=== PATIENT | male | born 1960 | race African-American/Black ===

== ENCOUNTER → 2016-12-01 | Outpatient (CLI) | payer OTHER ==
[~2016-12-01] MED LIST: ASPI-482 PO; CETI10TA22 PO; HYDR-2672 PO; HYDR12.58 PO; LISI-334 PO; METO-269 PO
--- NOTE | 2016-12-01 16:14 | KCIC ---
Examination: Two views of chest. HISTORY History of solitary pulmonary nodule, chronic cough. COMPARISON None available. Findings : The cardiomediastinal silhouette grossly appears unremarkable. There is a 1.6 centimeter nodule or granuloma identified in the right lower lobe of the lung. There is no acute infiltrate visualized pneumothorax identified. Mild degenerative changes thoracic spine. IMPRESSION 1.6 centimeter nodule or granuloma identified in the right lower lobe of the lung. Followup CT chest can be considered. Electronically signed by: Mark Baptiste (Dec 01, 2016 16:12:28)
== END | disposition home or self-care (01) ==
LOC: KCIC 14:20
PROVIDERS: ATTEND Family Medicine
DX: R05 Cough (principal); G47.33 Obstructive sleep apnea (adult) (pediatric); F17.200 Nicotine dependence, unspecified, uncomplicated; Z87.898 Personal history of other specified conditions
CPT/HCPCS: 71020

== ENCOUNTER → 2017-04-05 | Outpatient (CLI) | payer OTHER ==
--- NOTE | 2017-04-05 15:30 | KCIC ---
Examination: CT of the abdomen and pelvis without contrast HISTORY: Microscopic hematuria COMPARISON: None available Technique: Axial CT images of the abdomen and pelvis are performed without contrast. Coronal and sagittal reformats were performed. Exposure: One or more of the following individualized dose reduction techniques were utilized for this examination: 1. Automated exposure control 2. Adjustment of the mA and/or kV according to patient size 3. Use of iterative reconstruction technique FINDINGS: Calcified granuloma identified in the right lung base. No evidence of free air identified in the abdomen. The evaluation of the solid organs is limited due to lack of IV contrast. The evaluation of bowel is limited due to lack of oral contrast. The visualized noncontrasted liver, pancreas grossly appears unremarkable. Few calcified granulomas identified in the spleen. The right adrenal gland grossly appears unremarkable. There is mild enlarged appearing left adrenal gland measuring 6.4 mm likely left adrenal gland lipid rich adenoma. The visualized pancreas grossly appears unremarkable. The stomach is mildly distended small bowel is nondilated. The appendix grossly appears unremarkable. Feces and gas noted in the colon. Multiple sigmoid colon diverticulosis is identified. There is [id number] focal thickened appearance of the wall of the distal sigmoid colon. Normal-appearing appendix. Urinary bladder is mildly distended. Mildly enlarged appearing prostate gland. No evidence of intrarenal collecting system calculi or hydronephrosis identified. The caliber of the aorta grossly appears unremarkable. No evidence of lytic or destructive lesion. IMPRESSION: 1. No evidence of intrarenal collecting system calculi or hydronephrosis identified. 2. There is focal mild to moderate thickened appearance of the distal sigmoid colon wall with minimal surrounding fat stranding could be secondary to focal colitis or neoplasm. 3. Few colonic diverticula. 4. Left adrenal lipid rich adenoma. Electronically signed by: Mark Baptiste MD (04/05/2017 3:27 PM)
== END | disposition home or self-care (01) ==
LOC: KCIC CT 11:55
PROVIDERS: ATTEND Urology
DX: R31.29 Other microscopic hematuria (principal); K57.30 Diverticulosis of large intestine without perforation or abscess without bleeding; D35.02 Benign neoplasm of left adrenal gland
CPT/HCPCS: 74176

== ENCOUNTER → 2017-04-26 | Outpatient (CLI) | payer OTHER ==
[~2017-04-26] MED LIST changes: -HYDR-2672 PO; +HYDR-2766 PO
[2017-04-26 14:21] LABS: CALCIUM 8.9 mg/dL (8.5-10.1); CREATININE 0.9 mg/dL (0.7-1.3)
== END | disposition home or self-care (01) ==
LOC: LAB 13:21
PROVIDERS: ATTEND Urology
DX: R31.29 Other microscopic hematuria (principal)
CPT/HCPCS: 36415; 80048

== ENCOUNTER → 2017-08-27 | Day surgery (SDC) | payer OTHER ==
[~2017-08-27] MED LIST changes: +IV RINGERS,LACTATED 1000ML 1,000 ML IV SCH; +LIDOCAINE 1% PF 2 ML VIAL. ID PRN; +LIDOCAINE 2% PF Vial for OR 5 ML VIAL. ONE; +MIDAZOLAM HCL/PF 2 MG/2 ML VIAL. IV PRN; +PROPOFOL 40 ML IV ONE; +fentaNYL PF VIAL 100 MCG/2 ML VIAL IV PRN
[2017-08-27 08:55] VITALS: BP 135/97
--- NOTE | 2017-08-27 08:59 | CONS ---
DATE OF CONSULTATION: 08/27/2017 DATE OF SERVICE: 08/27/2017 REFERRING PHYSICIAN: Dr. Jac Arredondo. HISTORY OF PRESENT ILLNESS: A 56-year-old -[place] male whose past medical history significant for hypertension, hyperlipidemia, is seen for interval colonoscopy with screening colon. Bowel habits are regular with occasional constipation, left lower quadrant abdominal pain. CT scan did reveal a thickened sigmoid colon consistent with diverticular disease. Weight and appetite are stable. No melena or hematochezia noted. There is a family history of colon cancer with brother and father. He is here today for surveillance exam. PAST MEDICAL HISTORY: Hyperlipidemia, hypertension. ALLERGIES: SULFA. FAMILY HISTORY: Significant for colon cancer with a brother and father. PAST SURGICAL HISTORY: None. REVIEW OF SYSTEMS: Per records. SOCIAL HISTORY: He is a drinker or smoker. PHYSICAL EXAMINATION GENERAL: Reveals a well-nourished, well-developed male. VITAL SIGNS: Temperature is 97.7, pulse 66, respirations 20. HEENT: Normocephalic and atraumatic head. Pupils and extraocular muscles are not tested. Sclerae anicteric. NECK: Supple. LUNGS: Clear. CARDIOVASCULAR: Reveals S1, S2 without S3, S4 or appreciable murmur. ABDOMEN: Soft abdomen, normal bowel sounds, without appreciable hepatosplenomegaly. EXTREMITIES: Reveals no cyanosis, clubbing or edema. IMPRESSION: Colorectal screening with family history of colon cancer is warranted at this time. Risks and benefits of procedure including risk of perforation were discussed. The patient is willing to proceed. ROXANNE ELI MD DR: LORRIE/doug JOB#: [id number] / [id number]
== END | disposition home or self-care (01) ==
LOC: ENDOS 07:07
PROVIDERS: ATTEND Internal Medicine Gastroenterology
DX: K64.0 First degree hemorrhoids (principal); K57.30 Diverticulosis of large intestine without perforation or abscess without bleeding; E78.00 Pure hypercholesterolemia, unspecified; I10 Essential (primary) hypertension; Z80.0 Family history of malignant neoplasm of digestive organs; Z86.69 Personal history of other diseases of the nervous system and sense organs; Z87.39 Personal history of other diseases of the musculoskeletal system and connective tissue; Z88.2 Allergy status to sulfonamides; Z88.8 Allergy status to other drugs, medicaments and biological substances
CPT/HCPCS: 45378; J2704; J2001

== ENCOUNTER → 2017-10-15 | Outpatient (CLI) | payer OTHER ==
[2017-08-27 08:55] VITALS: BP 135/97
[~2017-10-15] MED LIST changes: -IV RINGERS,LACTATED 1000ML 1,000 ML IV SCH; -LIDOCAINE 1% PF 2 ML VIAL. ID PRN; -LIDOCAINE 2% PF Vial for OR 5 ML VIAL. ONE; -MIDAZOLAM HCL/PF 2 MG/2 ML VIAL. IV PRN; -PROPOFOL 40 ML IV ONE; -fentaNYL PF VIAL 100 MCG/2 ML VIAL IV PRN
--- NOTE | 2017-10-15 15:29 | RAD ---
Exam : Carotid Duplex with Grayscale Ultrasound and Spectral and Color Doppler Analysis: Clinical Indications: Dizziness Comparison study: None available. PQRS Compliance Statement - Stenosis calculations for CT, MR and conventional angiography are based upon measurement of the distal ICA diameter in accordance with the NASCET methodology. Stenosis calculations for carotid ultrasound studies are derived from validated velocity criteria which are known to correlate with the NASCET methodology. Findings: The common, internal and external carotid arteries were examined by grayscale, color and spectral Doppler ultrasound. Only minimal atherosclerotic vascular disease is noted in the bilateral carotid bulbs. No visual flow-limiting stenosis is identified. Flow in both vertebral arteries was antegrade and normal. The following are the velocities and ratios in the carotid arteries on both sides: RIGHT ICA PV: 69cm/sec RIGHT CCA PV: 77cm/sec RIGHT ICA ED: 20cm/sec RIGHT IC/CCPV: 0.9 RIGHT VERTEBRAL: antegrade flow RIGHT % STENOSIS: [Less than 50%] LEFT ICA PV: 76cm/sec LEFT CCA PV: 91cm/sec LEFT ICA ED: 26cm/sec LEFT IC/CCPV: 0.8 LEFT VERTEBRAL: antegrade flow LEFT % STENOSIS: [Less than 50%] <50% ICA Stenosis: PSV < 125cm/s (EDV < 40cm/s; SVR < 2.0) 50-69% ICA Stenosis: PSV < 125-229cm/s (EDV 40-99cm/s; SVR 2.0-3.9) >70% ICA Stenosis: PSV > 230cm/s (EDV >100cm/s; SVR >4.0) Impression: Minimal atherosclerotic vascular changes in the bilateral carotid bulbs with less than 50% stenosis of bilateral internal carotid arteries by ultrasound criteria
--- NOTE | 2017-10-15 16:38 | RAD ---
MRI Brain without contrast History: Dizziness and blurred vision for 6 months Technique: Multiplanar, multisequential noncontrast MR imaging was performed of the brain. Contrast: None Comparison: None Findings: There is some motion degradation.There is no evidence of recent infarct or cytotoxic edema. The ventricles, sulci, and cisterns are within normal limits in size and configuration. There is no significant midline shift, intraaxial mass effect, or focal abnormal extra-axial fluid collection. There is a focus of hemosiderin deposition right occipital lobe not associated with other signal change or mass effect. There is preservation of the major intracranial flow-voids at the skull base. The mastoid air cells are aerated. The cerebellar tonsils are normal in location. There is no significant abnormality of the pineal gland or pituitary gland. There is mild bilateral maxillary sinus as well as left sphenoid sinus and patchy bilateral ethmoid air cell mucosal thickening. There is nonspecific heterogeneity of the marrow of nonexpanded clivus. There is slightly disconjugate gaze. There are probably some symmetric small complex cysts of the nasopharynx bilaterally. Impression: 1. There is no evidence of recent infarct or intracranial mass effect. There is a small focus of old microhemorrhage or cavernous malformation of the right occipital lobe. Electronically signed by: Wilton Rain MD (10/15/2017 4:35 PM) [email or web address]
== END | disposition home or self-care (01) ==
LOC: MRI 14:20
PROVIDERS: ATTEND Family Medicine
DX: I65.23 Occlusion and stenosis of bilateral carotid arteries (principal); R42 Dizziness and giddiness
CPT/HCPCS: 70551; 93880

== ENCOUNTER → 2017-12-08 | Outpatient (CLI) | payer OTHER ==
[2017-12-08] MEDS: OXYMETAZOLINE 0.05% NASAL SPRAY 30ML BOTTLE. NS ×2 (21:45)
[2017-12-08] MEDS: ZOLPIDEM 5 MG TABLET. PO ×2 (22:00)
== END | disposition home or self-care (01) ==
LOC: RT 19:24
DX: G47.33 Obstructive sleep apnea (adult) (pediatric) (principal)
CPT/HCPCS: 95810

== ENCOUNTER → 2018-11-08 | Outpatient (CLI) | payer OTHER ==
[2017-08-27 08:55] VITALS: BP 135/97
[~2018-11-08] MED LIST changes: -HYDR-2766 PO; +HYDR-2769 PO
--- NOTE | 2018-11-08 14:06 | RAD ---
CT LOW DOSE LUNG SCREENING Indication: Lung cancer screening, history of solitary prominent nodule Technique: Noncontrast CT imaging was performed of the chest as per low dose lung screening protocol, multiplanar reconstruction images submitted. One or more of the following individualized dose reduction techniques were utilized for this examination: 1. Automated exposure control 2. Adjustment of the mA and/or kV according to patient size 3. Use of iterative reconstruction technique. Comparison: There is no previous similar exam available. Correlation is made with visualized lung bases on CT abdomen April 05, 2017 Findings: There is again large calcified focus of nodularity of the right lower lobe abutting the pleural surface. There is adjacent small focus of noncalcified subpleural nodularity just superiorly of the right lower lobe about 0.5 cm axial image 188 series 2. There are a few other tiny foci of subpleural right lower lobe nodularity, likely associated subtle calcification. There is emphysema with upper zone, paraseptal emphysema near the apices greater on the right. There is no pleural or pericardial effusion, lobar consolidation, or pneumothorax. Thoracic aortic caliber is within normal limits. No significantly enlarged nodes are identified of the chest, small mediastinal nodes. There is small right adrenal nodule about 1.5 cm density measurements suggestive of adenoma about 8 Hounsfield units. There is again left adrenal nodule about 2.6 cm, this measurements all suggestive of adenoma about 9 Hounsfield units. IMPRESSION: 1. There is a small calcified subpleural right lower lobe nodule about 0.5 cm adjacent to large calcified right lower lobe nodule seen previously. Lung RADS category 2, continued annual screening with low-dose CT in 12 months recommended. 2. There is emphysema with upper zone predominance. 3. There are left greater than right adrenal adenomas. Electronically signed by: Wilton Rain MD (11/08/2018 2:02 PM) [email or web address]
== END | disposition home or self-care (01) ==
LOC: CT 11:14
PROVIDERS: ATTEND Family Medicine
DX: Z12.2 Encounter for screening for malignant neoplasm of respiratory organs (principal); J43.8 Other emphysema; R92.8 Other abnormal and inconclusive findings on diagnostic imaging of breast; D35.02 Benign neoplasm of left adrenal gland; D35.01 Benign neoplasm of right adrenal gland
CPT/HCPCS: G0297

== ENCOUNTER → 2018-12-14 | Outpatient (CLI) | payer OTHER ==
[2017-08-27 08:55] VITALS: BP 135/97
[~2018-12-14] MED LIST changes: +ZOLPIDEM 5 MG TABLET. PO ONE
--- NOTE | 2018-12-15 10:25 | SLEEP ---
DATE OF STUDY: 12/14/2018 ATTENDING PHYSICIAN: Dr. Denver Arredondo. The patient is a 58-year-old who weighs 213 pounds with a BMI of 31. The patient's [place] score was 16. The patient underwent a split night study at [facility]. The patient also had a previous history of severe sleep apnea and was prescribed auto BiPAP last year. During the night study, the patient spent 391 minutes in bed and slept for 181 minutes with a sleep efficiency of 46%, which was low. Sleep latency was 10 minutes with a REM latency of 128 minutes. Overall sleep architecture showed increased stage 1 sleep, normal stage 2 sleep, absent slow wave sleep and normal REM sleep, which was 20% of the total sleep time. During the initial diagnostic portion of the study, the patient slept for 66 minutes. During that time there was 1 obstructive apnea, 13 hypopneas, 79 mixed apneas and no central apneas. The patient's apnea-hypopnea index was 85 per hour. The patient's supine index was not available due to lack of supine sleep during the diagnostic portion. The patient's REM index was not available either due to lack of REM sleep during the diagnostic portion. EKG monitoring revealed an average heart rate of 69 beats per minute, no sustained arrhythmias were observed. PLMS were not seen. Nocturnal oximetry study during the diagnostic portion of the study revealed an average oxygen saturation of 92% with the lowest of 83%. 9% of the time oxygen saturation remained between 80% and 89%. The patient met the criteria for CPAP initiation. He was started at 7 cm water and titrated up to 20 cm water. However, best results were seen at a CPAP pressure of 15 cm of water. The patient slept for 44 minutes. The patient had supine sleep, but no REM sleep. The patient's AHI was reduced to 4 per hour and oxygen saturation remained above 92%. Beyond this pressure the patient was found to have mixed apneas and an AHI was high at 18 and 20 cm of water. It is difficult to find an optimum CPAP pressure, but I would recommend that the patient should be placed on auto CPAP at a minimum pressure of 15 cm water and a maximum pressure of 22 cm water. IMPRESSION: 1. Severe sleep apnea-hypopnea syndrome at an apnea-hypopnea index of 85 per hour. 2. Nocturnal hypoxia secondary to obstructive sleep apnea, which resolved with CPAP. 3. No clinically significant periodic limb movements of sleep. RECOMMENDATIONS: 1. The patient should be placed on auto CPAP at a minimum pressure of 15 cm of water and a maximum pressure of 22 cm water. 2. The patient should have a followup in 4-6 weeks to assess compliance and to document clinical improvement. The patient should also have a review of the download data to make sure AHI remains less than 5 per hour. 3. Weight loss is strongly advised. 4. Avoid [employer] depressants. 5. Cautioned regarding driving until symptoms of sleep apnea have resolved with the above recommendations. PREM LIVINGSTON MD DR: HEATHER/doug JOB#: [id number] / [id number] Nano Tabor MD
== END | disposition home or self-care (01) ==
LOC: SLPLAB 19:12
PROVIDERS: ATTEND Family Medicine
DX: G47.33 Obstructive sleep apnea (adult) (pediatric) (principal); G47.34 Idiopathic sleep related nonobstructive alveolar hypoventilation
CPT/HCPCS: 95810

== ENCOUNTER → 2019-07-13 | Outpatient (CLI) | payer OTHER ==
[2017-08-27 08:55] VITALS: BP 135/97
[~2019-07-13] MED LIST changes: +CONTRAST GIVEN. MC PRN; +IOHEXOL 240 MG/ML 50ML VIAL. PO ONE; +IOHEXOL 300 MG/ML 100ML VIAL. IV ONE; -ZOLPIDEM 5 MG TABLET. PO ONE
--- NOTE | 2019-07-13 10:11 | RAD ---
Examination: CT of the abdomen pelvis with IV and oral contrast HISTORY: History of lower abdominal pain COMPARISON: 04/05/2017 TECHNIQUE: Axial CT images of the abdomen pelvis were performed with oral and IV contrast. Coronal and sagittal reformats are performed Exposure: One or more of the following individualized dose reduction techniques were utilized for this examination: 1. Automated exposure control 2. Adjustment of the mA and/or kV according to patient size 3. Use of iterative reconstruction technique FINDINGS: Focal calcification of the pleura identified in the right lower lobe of the lung. No evidence of free air identified in the abdomen. There is a small subcentimeter hypodensity identified in the right lobe of the liver, difficult to characterize. The right adrenal grossly appears unremarkable. Subcentimeter The gallbladder is mildly distended. The stomach is mildly distended. Calcified granulomas identified in the spleen. There is a 2.2 cm nodule identified in the left adrenal gland measuring 40 Hounsfield units. The small bowel is nondilated. Feces and gas noted in the colon. There is focal wall thickening of the sigmoid colon with surrounding fat stranding likely sigmoid colon mass/neoplasm, best seen on series 2 image 65.. There is stool distal and proximal to this region. The urinary bladder is mildly distended. The bilateral kidneys enhance symmetrically. The appendix is normal. Mild degenerative changes lumbar spine. IMPRESSION: 1. Focal wall thickening with surrounding fat stranding identified in the sigmoid colon possibly sigmoid colon mass or neoplasm. Recommend colonoscopy evaluation. 2. Small subcentimeter hypodensity identified in the right lobe of the liver, difficult to characterize. 3. 2.2 cm left adrenal nodule identified, recommend follow-up adrenal CT protocol. Electronically signed by: Mark Baptiste MD (07/13/2019 10:08 AM) [id number]
== END | disposition home or self-care (01) ==
LOC: CT 07:47
PROVIDERS: ATTEND Family Medicine
DX: E27.8 Other specified disorders of adrenal gland (principal); K82.8 Other specified diseases of gallbladder; K31.89 Other diseases of stomach and duodenum; D73.89 Other diseases of spleen; N32.89 Other specified disorders of bladder; J94.8 Other specified pleural conditions
CPT/HCPCS: 74177; Q9966; Q9967